=== PATIENT | female | born 1995 | race Caucasian/White ===

== ENCOUNTER 2021-09-01 19:43 | Emergency (ER) | payer BC, OTHER ==
[~2021-09-01] VITALS: Ht 157 cm; Wt 62.2 kg
--- OUTSIDE RECORDS SUMMARY | 2021-09-01 19:48 | XMS REPORT | Clinical Summary ---
Author Author [facility] Organization [facility] Address Unknown Phone Unavailable Care Team Providers Care Audit Practice Intern Name Role Phone Corrie Bob NP PCP Source Comments Some departments are not documenting in the electronic medical record. If you d o not see the information that you expected, contact Release of Information in [facility] Information Management department at [phone] for further assistan ce in locating additional records.[facility] Allergies No known active allergies Medications End Date Status Medication Sig Dispensed Refills Start Date Active gabapentin 300 mg Tb24 Take by 0 mouth three times daily. Active sertraline (ZOLOFT) 50 mg Take 50 mg by 0 tablet mouth daily. ALONG WITH A 25 MG TAB Active sertraline (ZOLOFT) 25 mg Take 25 mg by 0 tablet mouth daily. ALONG WITH A 50 MG TAB Active levomefolate calcium Take by 0 (DEPLIN PO) mouth daily. Active meloxicam (MOBIC) 15 mg Take 15 mg by 0 tablet mouth daily. Active brexpiprazole (REXULTI) Take 0.5 mg 0 0.5 mg tablet by mouth daily. Active Problems Problem Noted Date Breast asymmetry 05/21/2020 Overview: Formatting of this note might be differ ent from the original. DIAGNOSIS: Left breast changes 2. MTHFR mutation HISTORY: Ms. David is a female who p [facility]2020 at age 25 for left breast changes. She noticed her left breast was larger than her right b reast 4 months ago while breast feeding. She then noticed discoloratio n of her left nipple at that time, a scab on her areola that resolved. She then noticed a redness on her left breast and was treated for mastitis 3 m onths ago, with symptom resolution. Patient reports she was b ut discontinued that a few months ago. Patient had a left breast and left axilla ultrasound on 02/25/20 ([facility] No suspicious abnorma lities were seen on imaging. Patient had a left diagnostic mammogram ([facility]) on 04/07/20 and imaging revealed no evidence to suggest maligna ncy. An MRI was ordered at by patient's referring provider. Patient's referring provider would like patient to see a breast specialist as goyo cabezas. Patient was scheduled as requested. Patient denies any other cur rent breast concerns. Patient denies any history of breast surgeries or biop sies. BREAST IMAGING: Mammogram: - Left diagnostic mammogram 04/07/2020 ( [facility] revealed breast tissue was extremely dense. There were no dominant masses, suspicious clusters of micro-calcifications or are as of architectural distortion to suggest malignancy. There was mildly p rominent fatty tissue in the upper outer left breast. Ultrasound: - Left breast ultrasound 02/27/2020 ([email or web address]) revealed no solid or cystic mass was seen. No area of abnor mal shadowing was seen. No suspicious sonographic abnormality was evident. REPRODUCTIVE HEALTH: Age at first Menarche: 11 Age at First Live : 20 Age at Menopause: : 2 Para: 2 : yes PROCEDURE: none PERTINENT PMH: Rheumatoid Arthritis, h /o DVT. FAMILY HISTORY: Maternal Aunt x 2- Leonela ast cancer. PHYSICAL EXAM on PRESENTATION: MEDICAL ONCOLOGY: REFERRED BY: Ronel Hernandez NP Surgical History Surgery Date Site/Laterality Comments COLONOSCOPY 01/09/2020 - NORMAL 02/07/2020 Medical History Medical History Date Comments Arthritis Back pain Rheumatoid arthritis, rheumatoid factor status unknown (HCC) DVT (deep vein thrombosis) in RIGHT LOWER LEG MTHFR mutation Family History Medical History Relation Name Comments Arthritis-rheumatoid Father Diabetes Father High Cholesterol Father Hypertension Father Cancer-Breast Maternal Aunt Cancer-Lung Maternal Uncle Depression Mother Migraines Mother Cancer Paternal Grandfather Diabetes Paternal Grandfather Cancer-Uterine Paternal Grandmother Relation Name Status Comments Father Alive Maternal Aunt Alive Maternal Uncle Mother Alive Paternal Grandfather LIVER CANCER Paternal Grandmother Alive Social History Date Tobacco Use Types Packs/Day Years Used Never Smoker Smokeless Tobacco: Never Used Comments Alcohol Use Standard Drinks/Week Never 0 (1 standard drink = 0.6 o z pure alcohol) Alcohol Habits Answer Date Recorded How often do you have a drink containing alcohol? Never 05/22/2020 How many drinks containing alcohol do you have on No t asked a typical day when you are drinking? How often do you have six or more drinks on one Not asked occasion? Comment: Not asked Sex Assigned at Date Recorded Not on file Obstetrics History Term Pre Abrt (TAB) (SAB) (Ect) Mult Lvng Comments Grav Para 2 2 2 Date GA Total Labor Labor/2nd/3rd Weight Sex Delivery Anes PTL Mis A1 A5 Name Clin Outcome Para Para Last Filed Vital Signs Reading Time Taken Comments Vital Sign 122/72 05/22/2020 1:45 PM CDT Blood Pressure 84 05/22/2020 1:45 PM CDT Pulse 37 C (98.6 F) 05/22/2020 1:45 PM CDT Temperature - - Respiratory Rate 100% 05/22/2020 1:45 PM CDT Oxygen Saturation - - Inhaled Oxygen Concentration 62 kg (136 lb 11.2 oz) 05/22/2020 1:45 PM CDT Weight 157.5 cm (5' 2") 05/22/2020 1:45 PM CDT Height 25 05/22/2020 1:45 PM CDT Body Mass Index Plan of Treatment Health Maintenance Due Date Last Done Comments HIV SCREENING 01/31/2008 DTAP/TDAP VACCINES (1 - 2011 Tdap) HEPATITIS C SCREENING 2011 PHYSICAL (COMPREHENSIVE) 2011 EXAM CERVICAL CANCER SCREENING 2014 INFLUENZA VACCINE 05/10/2021 Results Not on filefrom Last 3 Months Insurance Type Payer Benefit Subscriber ID Effective Phone Address Plan / Dates Group [facility] [id number] 2019-P [phone] [id number] [facility] [email or web address] [address] Advance Directives Patient Tree Trimmer Explanation Type Date Recorded Advance Directive/DPOA Care Teams Start Date End Date Audit Practice Intern Relationship Specialty 05/22/20 Corrie Bob, REESE PCP - General Nurse [id number] Practitioner [address] [place] [address]
[2021-09-01 19:52] VITALS: BP 121/82
[2021-09-01] MEDS ORDERED: GABA300T24 (20:04)
[2021-09-01] MEDS ORDERED: SERT-414 (20:04)
--- NOTE | 2021-09-01 20:22 | ED EENT ---
History of Present Illness General Chief Complaint: Eye Problems Stated Complaint: L EYE BURNING Nursing Triage Note: left eye blood vessel rupture, burning pain, hx blood clotting disorder Source: patient Exam Limitations: no limitations (RADHA WHITMORE APRN) History of Present Illness Date Seen by Provider: Sep 01, 2021 Time Seen by Provider: 20:19 Initial Comments To ER with a ruptured blood vessel on her left eye that she noticed today. She was vomiting yesterday as she is 9 weeks . She also reports that when she vomited yesterday she noticed some blood in the emesis. She also has a bruise to the pad of her ring finger and she is not sure how she got that. She has a history of DVT with her last and she was managed with Lovenox, not currently on any anticoagulation. Has not yet seen her OB for this . This will be out of [place]. Reports she has some sort of a clotting disorder that was related to estrogen but she is not sure what it is. Timing/Duration: abrupt Severity: moderate Location: eye (L) Prearrival Treatment: no prearrival treatment Associated Symptoms: denies symptoms (RADHA WHITMORE APRN) Allergies and Home Medications Allergies Coded Allergies: No Known Drug Allergies (Unverified , 09/01/21) Patient Home Medication List Home Medication List Reviewed: Yes (RADHA WHITMORE APRN) Gabapentin (Gralise) 300 Mg Tab.er.24h, (Reported) Entered as Reported by: RASHID BEACH on 09/01/212003 Last Action: New Order Sertraline HCl (Sertraline HCl) 100 Mg Tablet, (Reported) Entered as Reported by: RASHID BEACH on 09/01/212003 Last Action: New Order Review of Systems Review of Systems Constitutional: see HPI Eyes: See HPI Ears: No Symptoms Reported Nose: no symptoms reported Mouth: no symptoms reported Throat: no symptoms reported Respiratory: no symptoms reported Cardiovascular: no symptoms reported Musculoskeletal: no symptoms reported Skin: no symptoms reported Neurological: No Symptoms Reported Hematologic/Lymphatic: No Symptoms Reported Immunological/Allergic: no symptoms reported (RADHA WHITMORE APRN) Past Cwgydwx-Nnnaro-Rcatgv Hx Patient Social History Tobacco Use?: No Substance use?: No Alcohol Use?: No Pt feels they are or have been: No (RADHA WHITMORE APRN) Immunizations Up To Date COVID19 Vaccine [employer] Laminator: moderna (RADHA WHITMORE APRN) Past Medical History Surgery/Hospitalization HX: dvt, colonoscopy, rheumatoid arthritis, anxiety Last Menstrual Period: Jun 30, 2021 (RADHA WHITMORE APRN) Physical Exam Vital Signs Vital Signs - First Documented 09/01/21 19:52 Temp 37.0 Pulse 89 Resp 18 B/P (MAP) 121/82 (95) Pulse Ox 99 O2 Delivery Room Air (JENNIFER,SILVESTRE K DO) Height, Weight, BMI Height: '" Weight: lbs. oz. kg; 25.00 BMI Method: General Appearance: WD/WN, no apparent distress Eyes: right eye normal inspection; left eye other (There is a small left subconjunctival hemorrhage. There is no hyphema. The pupil is equal round reactive.); bilateral eye PERRL, bilateral eye EOMI Ears: bilateral ear auricle normal, bilateral ear canal normal, bilateral ear TM normal Mouth/Throat: normal mouth inspection, pharynx normal Neck: non-tender, full range of motion Cardiovascular: regular rate, rhythm, no murmur Respiratory: no respiratory distress, no accessory muscle use Neurologic/Psychiatric: alert, normal mood/affect, oriented x 3 Skin: normal color, warm/dry, other (There is a dime sized bruise to the pad of the middle phalanx ring finger) (RADHA WHITMORE APRN) Progress/Results/Core Measures Results/Orders Lab Results Laboratory Tests Test 09/01/21 20:19 Range/Units White Blood Count 7.5 4.3-11.0 10^3/uL Red Blood Count 4.65 3.80-5.11 10^6/uL Hemoglobin 13.5 11.5-16.0 g/dL Hematocrit 40 35-52 % Mean Corpuscular Volume 85 80-99 fL Mean Corpuscular Hemoglobin 29 25-34 pg Mean Corpuscular Hemoglobin Concent 34 32-36 g/dL Red Cell Distribution Width 13.9 10.0-14.5 % Platelet Count 211 130-400 10^3/uL Mean Platelet Volume 10.8 9.0-12.2 fL Immature Granulocyte % (Auto) 0 % Neutrophils (%) (Auto) 63 42-75 % Lymphocytes (%) (Auto) 28 12-44 % Monocytes (%) (Auto) 7 0-12 % Eosinophils (%) (Auto) 1 0-10 % Basophils (%) (Auto) 1 0-10 % Neutrophils # (Auto) 4.7 1.8-7.8 10^3/uL Lymphocytes # (Auto) 2.1 1.0-4.0 10^3/uL Monocytes # (Auto) 0.6 0.0-1.0 10^3/uL Eosinophils # (Auto) 0.1 0.0-0.3 10^3/uL Basophils # (Auto) 0.0 0.0-0.1 10^3/uL Immature Granulocyte # (Auto) 0.0 0.0-0.1 10^3/uL Prothrombin Time 13.1 12.2-14.7 SEC INR Comment 1.0 0.8-1.4 Sodium Level 138 135-145 MMOL/L Potassium Level 3.5 L 3.6-5.0 MMOL/L Chloride Level 105 98-107 MMOL/L Carbon Dioxide Level 22 21-32 MMOL/L Anion Gap 11 5-14 MMOL/L Blood Urea Nitrogen 6 L 7-18 MG/DL Creatinine 0.65 0.60-1.30 MG/DL Estimat Glomerular Filtration Rate 109 BUN/Creatinine Ratio 9 Glucose Level 96 70-105 MG/DL Calcium Level 9.3 8.5-10.1 MG/DL (JENNIFER,SILVESTRE K DO) Vital Signs/I&O 09/01/21 19:52 Temp 37.0 Pulse 89 Resp 18 B/P (MAP) 121/82 (95) Pulse Ox 99 O2 Delivery Room Air (JENNIFER,SILVESTRE K DO) Blood Pressure Mean: 95 Departure Impression Primary Impression: Subconjunctival hemorrhage Disposition: 01 HOME, SELF-CARE Condition: Stable Departure-Patient Inst. Decision time for Depature: 20:21 (RADHA WHITMORE APRN) Referrals: KRAIG HOLLY OD Patient Instructions: Subconjunctival Hemorrhage Add. Discharge Instructions: 1. Follow up with one of the eye doctors listed. Return to ER for any concerns. You do not need any prescription eyedrops for this, this will reabsorb over the course of the next 1 to 2 weeks. All discharge instructions reviewed with patient and/or family. Voiced understanding. ATTENDING PHYSICIAN NOTE: I WAS PHYSICALLY PRESENT ER PHYSICIAN WHEN THIS PATIENT WAS IN ER, BUT I WAS NOT INVOLVED IN ANY DECISION MAKING OR ANY CARE OF THIS PATIENT. (SILVESTRE RODRIGUEZ DO) RADHA WHITMORE APRN Sep 01, 2021 20:22 SILVESTRE RODRIGUEZ DO Sep 01, 2021 23:18
[2021-09-01 20:33] LABS: BASOPHILS % (AUTO) 1 % (0-10); EOSINOPHILS # (AUTO) 0.1 10^3/uL (0.0-0.3); EOSINOPHILS % (AUTO) 1 % (0-10); HEMATOCRIT 40 % (35-52); HEMOGLOBIN 13.5 g/dL (11.5-16.0); LYMPHOCYTES # (AUTO) 2.1 10^3/uL (1.0-4.0); LYMPHOCYTES % (AUTO) 28 % (12-44); MEAN CORPUSCULAR HEMOGLOBIN 29 pg (25-34); MEAN CORPUSCULAR HGB CONC 34 g/dL (32-36); MEAN CORPUSCULAR VOLUME 85 fL (80-99); MEAN PLATELET VOLUME 10.8 fL (9.0-12.2); MONOCYTES # (AUTO) 0.6 10^3/uL (0.0-1.0); MONOCYTES % (AUTO) 7 % (0-12); NEUTROPHILS # (AUTO) 4.7 10^3/uL (1.8-7.8); NEUTROPHILS % (AUTO) 63 % (42-75); PLATELET COUNT 211 10^3/uL (130-400); WHITE BLOOD COUNT 7.5 10^3/uL (4.3-11.0)
[2021-09-01 20:46] LABS: PROTHROMBIN TIME PATIENT 13.1 SEC (12.2-14.7)
[2021-09-01 20:51] LABS: POTASSIUM 3.5 MMOL/L (3.6-5.0)
[2021-09-01 20:52] LABS: CALCIUM 9.3 MG/DL (8.5-10.1)
[2021-09-01 20:57] LABS: CREATININE SERUM 0.65 MG/DL (0.60-1.30)
== END 2021-09-01 21:04 | disposition home or self-care (01) ==
LOC: ER 19:45
DX: O20.8 Other hemorrhage in early pregnancy (principal); H11.32 Conjunctival hemorrhage, left eye; F41.9 Anxiety disorder, unspecified; Z79.899 Other long term (current) drug therapy; Z3A.09 9 weeks gestation of pregnancy
CPT/HCPCS: 36415; 80048; 85025; 85610